=== PATIENT | female | born 1965 | race Caucasian/White ===

== ENCOUNTER → 2020-05-26 | Outpatient (CLI) | payer BC ==
--- NOTE | 2020-05-26 15:25 | BD ---
EXAMINATION TYPE: Axial Bone Density DATE OF EXAM: 05/26/2020 COMPARISON: NONE CLINICAL HISTORY: Height: 5 FT Weight: 212 FRAX RISK QUESTIONS: Alcohol (3 or more units per day): NO Family History (Parent hip fracture): NO Glucocorticoids (More than 3mos): NO (Ex: prednisone, prednisolone, methylprednisolone, dexamethasone, and hydrocortisone). History of Fracture in Adulthood: UNSURE Secondary Osteoporosis: 1. Type 1 Diabetes: NO 2. Hyperthyroidism: NO 3. Menopause before 45: YES 4. Malnutrition: NO 5. Chronic liver disease: NO Rheumatoid Arthritis: NO Current Tobacco Use: NO RISK FACTORS HISTORY OF: Surgery to Spine/Hip(right/left)/Wrist (right/left): NO Family History of Osteoporosis: NO Active: YES Diet low in dairy products/other sources of calcium: NO Postmenopausal woman: TOTAL HYST AGE 40 Take estrogen and/or progesterone medications: NONE Lost more than 2 inches in height since high school: NONE MEDICATIONS: Thyroid Medications: YES Which medication: LEVOTHYROXINE How Lon-25 YEARS Additional Medications: METFORMIN, TRULICITY,GLIBURIDE,LEVOTHYROXINE ,BABY ASPIRIN Additional History: EXAM MEASUREMENTS: Bone mineral densitometry was performed using the [employer] System. Bone mineral density as measured about the Lumbar spine is: ----- L1-L4(G/cm2): 1.755 T Score Values are as follows: ----- L2: 4.7 ----- L3: 5.3 ----- L4: 4.9 ----- L1-L4: 4.8 FIRST TIME LUMBAR HAS BEEN DONE DENIES SURG Bone mineral density about the R hip (g/cm2): 1.210 Bone mineral density about the L hip (g/cm2): 1.209 T Score values are as follows: -----R Neck: 1.2 -----L Neck: 1.2 -----R Total: 3.2 -----L Total: 3.8 Bone mineral density has: DECREASED -2.6 % since study of: 2006 IMPRESSION: Normal (Values between +1 and -1 indicate normal bone mass). Consider repeating this study in 5 year s or sooner if there is some new clinical indication. NOTE: T-SCORE=SD OF THE YOUNG ADULT MEAN.
--- NOTE | 2020-05-28 09:54 | MM ---
Reason for exam: screening (asymptomatic). Last mammogram was performed 6 years ago. History: Patient is postmenopausal and has history of endometrial cancer at age 39. Family history of breast cancer in paternal aunt at age 50 and breast cancer in paternal cousin. Took hormonal contraceptives for 2 years beginning at age 18. Physical Findings: A clinical breast exam by your physician is recommended on an annual basis and results should be correlated with mammographic findings. MG 3D Screening Mammo W/Cad Bilateral CC and MLO view(s) were taken. Prior study comparison: May 29, 2014, bilateral MG screening mammo w CAD. September 07, 2006, bilateral screening mammogram w/CAD. There are scattered fibroglandular densities. There is no discrete abnormality. No significant changes when compared with prior studies. ASSESSMENT: Negative, BI-RAD 1 RECOMMENDATION: Routine screening mammogram of both breasts in 1 year.
== END | disposition home or self-care (01) ==
LOC: RADMAMWWP 10:09
PROVIDERS: ATTEND Family Medicine
DX: Z12.31 Encounter for screening mammogram for malignant neoplasm of breast (principal); Z78.0 Asymptomatic menopausal state; Z80.3 Family history of malignant neoplasm of breast
CPT/HCPCS: 77063; 77067; 77080